=== PATIENT | female | born 1955 | race African-American/Black ===

== ENCOUNTER 2016-12-19 22:30 | Emergency (ER) | payer MEDICAID, OTHER ==
[~2016-12-19] VITALS: Ht 175.3 cm; Wt 95.9 kg
[~2016-12-19 22:30] MED LIST: ASPI81TA2 PO; ESCI20TA PO; INSU100V3 IJ; TELM1TAB2 PO
[2016-12-19 22:34] VITALS: BP 190/90
[2016-12-19 22:47] LABS: GLUCOSE,POINT OF CARE 264 MG/DL (70-110)
[2016-12-19] MEDS ORDERED: TraMADol HCL 50 MG TABLET PO ONE (23:45)
== END 2016-12-20 00:03 | disposition home or self-care (01) ==
LOC: EMS 22:32
DX: R10.84 Generalized abdominal pain (principal); I10 Essential (primary) hypertension; E78.00 Pure hypercholesterolemia, unspecified; E11.9 Type 2 diabetes mellitus without complications; F17.210 Nicotine dependence, cigarettes, uncomplicated; Z79.4 Long term (current) use of insulin; Z91.040 Latex allergy status
CPT/HCPCS: 82962; 93005; 99283; 99406